=== PATIENT | female | born 1990 | race Caucasian/White ===

== ENCOUNTER 2019-08-17 20:53 | Emergency (ER) | payer OTHER ==
--- NOTE | 2019-08-17 21:47 | XRAY Report ---
Reason: CRUSH INJURY Procedure Date: 08/17/2019 Accession Number: [id number] / [id number] Procedure: XR - Hand 3 View RT CPT Code: Final Report FULL RESULT: EXAM: RIGHT HAND RADIOGRAPHY EXAM DATE: 08/17/2019 09:36 PM. CLINICAL HISTORY: CRUSH INJURY. COMPARISON: None. TECHNIQUE: 3 views. FINDINGS: Bones: Normal. No fractures or bone lesions. Joints: Normal. No subluxations. Soft Tissues: Normal. No soft tissue swelling. IMPRESSION: Normal hand radiography. [facility]
--- NOTE | 2019-08-17 22:02 | ED Physician Documentation ---
History of Present Illness - Stated complaint Stated Complaint: HAND NUMBNESS/INJ - Chief complaint Chief Complaint: Trauma Ext - History obtained from History obtained from: Patient, Family - History of Present Illness Quality: DULL Radiates to: NONE - Additonal information Additional information: 29 YEAR OLD FEMALE PRESENTS TO THE EMERGENCY DEPARTMENT BECAUSE OF RIGHT HAND NUMBNESS AFTER SUSTAINING AN INJURY 2 DAYS AGO. A WOODEN BED FRAME FELL ON HER RIGHT HAND. SHE HAS SWELLING TO THE DORSUM OF HER RIGHT HAND. SHE IS RIGHT HAND DOMINANT. SHE REPORTS OF NUMBNESS TO THE RIGHHT 2ND AND 3RD MCP JOINT AREA DORSALLY. SMALL ECCHYMOSES WAS NOTED PROXIMAL TO THE AREA. SHE IS ABLE TO FLEX AND EXTEND ALL HER FINGERES AND THUMB ON THE RIGHT WITHOUT DIFFICULTY. SHE DENIES PREVIOUS INJURY TO RIGHT HAND. SHE DENIES ANY WRIST PAIN. Review of Systems Constitutional: denies: Fever, Chills Ears: denies: Ear pain Nose: denies: Rhinorrhea / runny nose, Congestion Respiratory: denies: Dyspnea, Cough GI: denies: Abdominal Pain, Nausea, Vomiting Skin: reports: Other (CONTUSION NOTED.) Musculoskeletal: denies: Neck pain, Back pain PD PAST MEDICAL HISTORY - Past Medical History Past Medical History: No Cardiovascular: None Respiratory: None Neuro: None GI: None - Past Surgical History Past Surgical History: No PD ED PE NORMAL - Vitals Vital signs reviewed: Yes - General General: Alert and oriented X 3 - HEENT HEENT: Atraumatic, EOMI, Other (WEARS GLASSES) - Neck Neck: Supple, no meningeal sign - Cardiac Cardiac: RRR - Respiratory Respiratory: No respiratory distress - Extremities Extremities: No deformity, Normal ROM s pain, Other (MILD SWELLING WITH ECCHYMOSES NOTED TO THE DORSUM OF RIGHT HAND. ABLE TO FLEX AND EXTEND FINGERS WITHOUT DIFFICULTY. CAP REFILL WAS LESS THAN 2 SECONDS. NO BONY TENDERNESS. NO DEFORMITY. NO TENDERNESS TO PALPATION OF THE SPANGLER SIDE. ) - Neuro Neuro: Alert and oriented X 3 Eye Opening: Spontaneous Motor: Obeys Commands Verbal: Oriented GCS Score: 15 Results - Vitals Vitals: Vital Signs - 24 hr 08/17/19 20:56 Temperature 36.9 C Heart Rate 91 Respiratory 16 Rate Blood Pressure 107/86 H O2 Saturation 98 PD MEDICAL DECISION MAKING - ED course Complexity details: d/w patient, d/w family ED course: 29 YEAR OLD FEMALE, RIGHT HAND DOMINANT, PRESENTS TO THE EMERGENCY DEPARTMENT WI TH RIGHT HAND INJURY WITH ECCHYMOSES TO THE DORSUM OF RIGHT HAND. XRAY DID NOT SHOW FRACTURE OR DISLOCATION. PATIENT REMAINED NEUROLOGICALLY INTACT. CAP REFILL WAS NORMAL. DO NOT SUSPECT COMPARTMENT SYNDROME OR VASCULAR CONCERN. I RECOMMEND SUPPORTIVE CARE AND OUTPATIENT FOLLOW UP WITH PCP IN 1 WEEK. STRICT RETURN INSTRUCTIONS WERE GIVEN. PATIENT WAS DISCHARGED IN STABLE CONDITION. Departure - Departure Disposition: 01 Home, Self Care Clinical Impression: Crushing injury, Hand contusion Condition: Stable Instructions: ED Contusion Hand Follow-Up: [facility] [Provider Group] - Within 1 week Comments: PLEASE FOLLOW UP WITH A REGULAR DOCTOR IN 1 WEEK.
[2019-08-17 22:34] VITALS: BP 142/97
== END 2019-08-17 22:33 | disposition home or self-care (01) ==
LOC: ED 20:53
DX: S67.21XA Crushing injury of right hand, initial encounter (principal); S60.221A Contusion of right hand, initial encounter; W20.8XXA Other cause of strike by thrown, projected or falling object, initial encounter
CPT/HCPCS: 99282; 99283